=== PATIENT | female | born 1960 | race Hispanic/Latino ===

== ENCOUNTER 2019-04-20 18:30 | Emergency (ER) | payer BC ==
[2019-04-20] MEDS ORDERED: FAMOTIDINE 20 MG/2 ML INJ IV ONE (18:54)
[2019-04-20] MEDS ORDERED: methylPREDNISolone Sod Succinate 125 MG/2 ML INJ IV ONE (18:54)
--- NOTE | 2019-04-20 19:02 | Emergency Department Report ---
HPI - General Chief Complaint: Allergic Reaction Time Seen by Provider: 04/20/19 18:52 - HPI HPI: Mrs. Zheng is a 58 yo female without significant past medical hx who presents with drug reaction after taking bactrim. She took one pill today for UTI. She has red itchy palms and lips/tongue itching. No previous history of drug allergy. She denies shortness of breath. She denies trouble swallowing. No chest pain or syncope. Denies abdominal pain or vomiting. No rash or itching in any other part of the body. Sudden onset of symptoms just prior to arrival. She did not attempt any medication to treat. ED Past Medical Hx - Past Medical History Previous Medical History?: No - Surgical History Past Surgical History?: Yes Additional Surgical History: left shoulder surgery - Social History Smoking Status: Never Smoker Substance Use Type: None - Medications Home Medications: Home Medications Medication Instructions Recorded Confirmed Last Taken Type Famotidine [Pepcid] 20 mg PO BID 3 Days #6 tablet 04/20/19 Unknown Rx Nitrofurantoin [place]/M-Cryst 100 mg PO Q12HR 5 Days #10 capsule 04/20/19 Unknown Rx [Macrobid CAP] diphenhydrAMINE [Benadryl CAP] 25 mg PO TID 3 Days #9 capsule 04/20/19 Unknown Rx predniSONE [Deltasone] 3 tab PO QDAY 3 Days #9 tab 04/20/19 Unknown Rx ED Review of Systems ROS: Stated complaint: ALLERGIC REACTION/TONGUE BIG Other details as noted in HPI Comment: All other systems reviewed and negative Constitutional: denies: fever, malaise Respiratory: denies: cough, shortness of breath Cardiovascular: denies: chest pain Gastrointestinal: denies: abdominal pain, nausea, vomiting Skin: rash Physical Exam - Physical Exam Vital Signs: Vital Signs 04/20/19 18:36 Temperature 98.6 F Pulse Rate 110 H Respiratory 20 Rate Blood Pressure 149/96 O2 Sat by Pulse 98 Oximetry General: Gen.: Well-appearing no distress normal voice HEENT normocephalic/atraumatic anicteric sclera normal lip size normal tongue size Neck: No edema no stridor Chest clear to auscultation bilaterally no rales no rhonchi no wheezes Cardiac regular rate and rhythm no murmurs or rubs gallops Abdomen soft nontender nondistended Extremities palmar erythema no urticaria Skin: No urticaria of the torso extremities Psychiatric: Pleasant demeanor alert and oriented 4 Neuro: Ambulatory without difficulty, normal brisk gait moves all 4 extremities fully and fluidly ED Course Vital Signs 04/20/19 18:36 Temperature 98.6 F Pulse Rate 110 H Respiratory 20 Rate Blood Pressure 149/96 O2 Sat by Pulse 98 Oximetry ED Medical Decision Making - Medical Decision Making Acute drug allergic reaction to bactrim: Treated with Solu-Medrol famotidine Benadryl. Prescribed macrobid to replace the Bactrim. Also prescribed famotidine prednisone and Benadryl. She was given verbal and written education. She understands to avoid Bactrim and sulfa drugs in the future. Critical care attestation.: If time is entered above; I have spent that time in minutes in the direct care of this critically ill patient, excluding procedure time. ED Disposition Clinical Impression: Allergic reaction to drug Disposition: DC-01 TO HOME OR SELFCARE Is pt being admited?: No Does the pt Need Aspirin: No Condition: Stable Instructions: Antibiotic Medication Allergy (ED) Additional Instructions: You have developed an allergy to bactrim and sulfa drugs. Please avoid this medications in the future. Prescriptions: diphenhydrAMINE [Benadryl CAP] 25 mg PO TID 3 Days #9 capsule predniSONE [Deltasone] 3 tab PO QDAY 3 Days #9 tab Nitrofurantoin [place]/M-Cryst [Macrobid CAP] 100 mg PO Q12HR 5 Days #10 capsule Famotidine [Pepcid] 20 mg PO BID 3 Days #6 tablet Referrals: PATTIE SCOTT MD [Staff Physician] - 3-5 Days
[2019-04-20] MEDS ORDERED: diphenhydrAMINE 50 MG/ML VIAL ONE (19:04)
[2019-04-20 20:06] VITALS: BP 131/63
[2019-04-21] MEDS ORDERED: diphenhydrAMINE 50 MG/ML VIAL IV ONE (00:01)
== END 2019-04-20 20:07 | disposition home or self-care (01) ==
LOC: ED 18:30
DX: L29.8 Other pruritus (principal); T36.8X5A Adverse effect of other systemic antibiotics, initial encounter; Z98.890 Other specified postprocedural states; Z88.0 Allergy status to penicillin; Z88.8 Allergy status to other drugs, medicaments and biological substances; Z79.899 Other long term (current) drug therapy
CPT/HCPCS: 96374; 96375; 99282; J1200; J2930

== ENCOUNTER 2021-04-07 07:25 | Outpatient (CLI) | payer BC, OTHER ==
--- NOTE | 2021-04-07 11:37 | Mammography Report ---
DIGITAL SCREENING MAMMOGRAM WITH CAD, 04/07/2021 CLINICAL INFORMATION / INDICATION: Routine screening mammography. Remote history of left breast cyst aspiration. TECHNIQUE: Digital bilateral 2D mammography was obtained in the craniocaudal and mediolateral obliqu e projections. This examination was interpreted with the benefit of Computer-Aided Detection analysis . COMPARISON: 06/30/10 FINDINGS: Breast Density: The breasts are heterogeneously dense, which may obscure small masses. No dominant mass, suspicious calcifications, or architectural distortion in either breast. Bilateral benign-appearing nodularity appears stable. IMPRESSION: No mammographic evidence of malignancy. No significant interval change. Follow up recommendation: Routine yearly BI-RADS Category 2: BENIGN. A "normal" or negative report should not discourage follow up or biopsy of a clinically significant f inding. A written summary of these findings will be mailed to the patient. The patient will be entered into a mammography reporting system which will generate a reminder letter for the patient's next appointmen t at the appropriate interval. The [employer] recommends yearly mammograms starting at age 40 and continuing as l salena as a woman is in good health. Breast MRI is recommended for women with an approximate 20-25% or greater lifetime risk of breast cancer, including women with a strong family history of breast or ova renee cancer or who have been treated for Hodgkin's disease. Signer Name: Teofilo Alvarez MD Signed: 04/07/2021 11:32 AM Workstation Name: [id number]
== END 2021-04-07 07:26 | disposition home or self-care (01) ==
LOC: MAMMO 07:25
PROVIDERS: ATTEND Registered Nurse
DX: Z12.31 Encounter for screening mammogram for malignant neoplasm of breast (principal)
CPT/HCPCS: 77067

== ENCOUNTER 2021-06-28 03:40 | Emergency (ER) | payer OTHER ==
[2021-06-28 05:45] VITALS: BP 137/58
--- NOTE | 2021-06-28 05:48 | Emergency Department Report ---
ED General Adult HPI - General Chief complaint: Earache Stated complaint: RT EARACHE AND NECK PAIN Time Seen by Provider: 06/28/21 05:22 Source: patient Mode of arrival: Ambulatory Limitations: No Limitations - History of Present Illness Initial comments: 60-year-old female presents emergency department complaining of a few day history of right ear pain and a dull throbbing fashion associated with nasal congestion and the weather change. She reports no tinnitus no presyncope but the pain does radiate to the back of her ear and up and down her neck. No fever, chills, sweats. No hemoptysis hematemesis hematochezia, no nausea no vomiting -: Gradual Radiation: non-radiation Quality: dull Consistency: constant Improves with: none Worsens with: none Associated Symptoms: denies: confusion, chest pain, loss of appetite, rash, weakness Treatments Prior to Arrival: none - Related Data Previous Rx's Medication Instructions Recorded Last Taken Type Famotidine [Pepcid] 20 mg PO BID 3 Days #6 tablet 04/20/19 Unknown Rx Nitrofurantoin [place]/M-Cryst 100 mg PO Q12HR 5 Days #10 capsule 04/20/19 Unknown Rx [Macrobid CAP] diphenhydrAMINE [Benadryl CAP] 25 mg PO TID 3 Days #9 capsule 04/20/19 Unknown Rx predniSONE [Deltasone] 3 tab PO QDAY 3 Days #9 tab 04/20/19 Unknown Rx Cefdinir 300 mg PO BID #20 cap 06/28/21 Unknown Rx Allergies Allergy/AdvReac Type Severity Reaction Status Date / Time Penicillins Allergy Unknown Verified 04/20/19 18:37 sulfamethoxazole Allergy Unknown Verified 04/20/19 18:37 [From Bactrim] trimethoprim [From Bactrim] Allergy Unknown Verified 04/20/19 18:37 ED Review of Systems ROS: Stated complaint: RT EARACHE AND NECK PAIN Other details as noted in HPI Comment: All other systems reviewed and negative ED Past Medical Hx - Surgical History Additional Surgical History: left shoulder surgery - Social History Smoking Status: Never Smoker Substance Use Type: None - Medications Home Medications: Home Medications Medication Instructions Recorded Confirmed Last Taken Type Famotidine [Pepcid] 20 mg PO BID 3 Days #6 tablet 04/20/19 Unknown Rx Nitrofurantoin [place]/M-Cryst 100 mg PO Q12HR 5 Days #10 capsule 04/20/19 Unknown Rx [Macrobid CAP] diphenhydrAMINE [Benadryl CAP] 25 mg PO TID 3 Days #9 capsule 04/20/19 Unknown Rx predniSONE [Deltasone] 3 tab PO QDAY 3 Days #9 tab 04/20/19 Unknown Rx Cefdinir 300 mg PO BID #20 cap 06/28/21 Unknown Rx ED Physical Exam - General Limitations: No Limitations General appearance: alert, in no apparent distress - Head Head exam: Present: atraumatic, normocephalic - Eye Eye exam: Present: normal appearance, PERRL, EOMI - ENT ENT exam: Present: normal exam, normal orophraynx, mucous membranes moist, TM's normal bilaterally - Neck Neck exam: Present: normal inspection, full ROM - Respiratory Respiratory exam: Present: normal lung sounds bilaterally. Absent: respiratory distress, wheezes, rales, chest wall tenderness, accessory muscle use - Cardiovascular Cardiovascular Exam: Present: regular rate, normal rhythm. Absent: systolic murmur, diastolic murmur, rubs, gallop - GI/Abdominal GI/Abdominal exam: Present: soft, normal bowel sounds - Extremities Exam Extremities exam: Present: normal inspection - Back Exam Back exam: Present: normal inspection - Neurological Exam Neurological exam: Present: alert, oriented X3 - Psychiatric Psychiatric exam: Present: normal affect, normal mood - Skin Skin exam: Present: warm, dry, intact, normal color. Absent: rash ED Course Vital Signs 06/28/21 03:45 Temperature 99.9 F H Pulse Rate 121 H Respiratory 18 Rate Blood Pressure 175/79 O2 Sat by Pulse 96 Oximetry ED Medical Decision Making - Radiology Data Radiology results: report reviewed - Medical Decision Making Exam and history Ms. Zheng consistent with otitis media. I have low suspicion at this time for mastoiditis, malignant otitis externa, herpes, retained foreign body. No evidence of any tympanic membrane rupture or 4th cranial nerve palsy. Currently awake alert no acute distress ambulatory no signs of presyncope at this present time or prior to arrival. Heart rate was reportedly 121 at the time of triage at the time of examination heart rate was 97 without medication plan will provide a prescription for antibiotics for the next 7 to 10 days. And return precautions were were discussed with full understanding. Critical care attestation.: If time is entered above; I have spent that time in minutes in the direct care of this critically ill patient, excluding procedure time. ED Disposition Clinical Impression: Otitis media Disposition: HOME / SELF CARE / HOMELESS Is pt being admited?: No Does the pt Need Aspirin: No Condition: Stable Instructions: Otitis Media, Adult Prescriptions: Cefdinir 300 mg PO BID #20 cap Referrals: PRIMARY CARE, [Primary Care Provider] - 3-5 Days ALICE LEIVA MD [Staff Physician] - 3-5 Days
== END 2021-06-28 06:02 | disposition home or self-care (01) ==
LOC: ED 03:40
DX: H66.90 Otitis media, unspecified, unspecified ear (principal)
CPT/HCPCS: 99282